=== PATIENT | male | born 1990 | race Caucasian/White ===

== ENCOUNTER 2020-03-26 10:28 | Emergency (ER) | payer MEDICAID ==
[~2020-03-26] VITALS: Ht 180.3 cm; Wt 77.3 kg
[2020-03-26 10:43] VITALS: Ht 180.3 cm; Wt 77.3 kg
[2020-03-26 11:07] LABS: BASOPHILS 0.1 % (0-2); EOSINOPHILS 2.1 % (0-7); HEMATOCRIT 46.6 % (42.0-54.0); HEMOGLOBIN 16.2 g/dL (13.5-17.5); IMMATURE GRANULOCYTES 0.2 % (0-5); LYMPHOCYTES 20.4 % (15-50); MCH 32.5 pg (26.0-34.0); MCHC 34.8 g/dL (31.0-37.0); MCV 93.6 fL (80.0-100.0); MEAN PLATELET VOLUME 9.6 fL (7.4-10.4); NEUTROPHILS 71.2 % (40-80); PLATELET COUNT 252 10x3/uL (130-400); RBC 4.98 10x6/uL (4.20-6.10); RDW 13.9 % (11.5-14.5); WBC 8.9 10x3/uL (4.8-10.8)
[2020-03-26 11:14] LABS: CALC OSMOLALITY 274 mosm/kg (275-300); CALCIUM 9.3 mg/dL (8.5-10.1); CARBON DIOXIDE 27.5 mmol/L (21.0-32.0); CHLORIDE - SERUM 99 mmol/L (98-107); CREATININE - SERUM 1.5 mg/dL (0.6-1.3); GLUCOSE 104 mg/dL (74-106); POTASSIUM - SERUM 3.5 mmol/L (3.5-5.1); SODIUM 136 mmol/L (136-145); UREA NITROGEN 22 mg/dL (7-18); eGFR NON AFRICAN AMERICAN 59 mL/min (90-120)
[2020-03-26 11:40] LABS: ALBUMIN 4.5 g/dL (3.4-5.0); ALKALINE PHOSPHATASE 73 U/L (30-120); ALT (SGPT) 21 U/L (10-68); AMYLASE - SERUM 26 U/L (25-115); BILIRUBIN - TOTAL 0.51 mg/dL (0.2-1.3); CREATINE KINASE 354 UL (21-232); LIPASE 102 U/L (73-393)
[2020-03-26 11:46] LABS: CKMB 2.1 U/L (0.0-3.6); TROPONIN-I < 0.017 ng/mL (0.000-0.060)
[2020-03-26 12:35] LABS: BILIRUBIN NEGATIVE (NEGATIVE); GLUCOSE NEGATIVE (NEGATIVE); KETONE NEGATIVE (NEGATIVE); NITRITE NEGATIVE (NEGATIVE); SPECIFIC GRAVITY 1.025 (1.005-1.020)
[2020-03-26] MEDS ORDERED: ZOFRAN ODT4 MG/UDTAB PO (12:48)
[2020-03-26 13:35] VITALS: BP 125/68
== END 2020-03-26 13:36 | disposition home or self-care (01) ==
LOC: D.ER 10:28
PROVIDERS: Family Medicine
DX: T67.5XXA Heat exhaustion, unspecified, initial encounter (principal); E86.0 Dehydration; R11.2 Nausea with vomiting, unspecified; N28.9 Disorder of kidney and ureter, unspecified; R11.0 Nausea; R10.9 Unspecified abdominal pain; R42 Dizziness and giddiness